=== PATIENT | female | born 1955 | race Caucasian/White ===

== ENCOUNTER 2018-05-09 09:02 | Day surgery (SDC) | payer MEDICARE, BC ==
[~2018-05-09 09:02] MED LIST: Sodium Chloride 0.9% 10 ML Syringe FLUSH PRN
[2018-05-09] MEDS ORDERED: Midazolam 1 MG/ML 2 ML SDV ONE (09:44)
[2018-05-09] MEDS ORDERED: Propofol 200 MG/20 ML SDV ONE (09:45)
[2018-05-09] MEDS ORDERED: fentaNYL 100 MCG/2 ML SDV ONE (09:45)
[2018-05-09] MEDS ORDERED: EPINEPHrine 1:10,000 1 MG/10 ML Syringe ONE (10:09)
[2018-05-09] MEDS: Sodium Chloride 0.9% 1,000 ML IV SCH (11:17)
[2018-05-09] MEDS ORDERED: fentaNYL 100 MCG/2 ML SDV IV ONE (11:25)
[2018-05-09] MEDS ORDERED: Midazolam 1 MG/ML 2 ML SDV IV ONE (11:25)
[2018-05-09] MEDS ORDERED: Propofol 200 MG/20 ML SDV IV ONE (11:25)
--- NOTE | 2018-05-09 12:20 | PCM.OPNOTE ---
- General Post-Op/Procedure Note Date of Surgery/Procedure: 05/09/18 Operative Procedure(s): Upper and lower GI endoscopy and polypectomy. Pre Op Diagnosis: Anemia and Hemoccult-positive stools. Post-Op Diagnosis: Small hiatal hernia without evidence of ulceration. Otherwise negative upper GI endoscopy. Polyp noted at the ascending colon. Polypectomy performed. Otherwise negative colonoscopy. Anesthesia Technique: Combo Spinal/Epidural, MAC Primary Surgeon: Taylor Smallwood Complications: None Condition: Good Free Text/Narrative:: INFORMED CONSENT: Patient is here today for elective upper GI endoscopy. All aspects of this procedure have been discussed with the patient. All possible complications also, including possibility of perforation, infection, pain, bleeding, numbness of the throat, swallowing difficulty and unknown complications. In the event of perforation the patient may need surgical exploration to repair the defect. The patient understands fully well. Patient did not have any further questions for me at the end of my interview. The patient wishes for me to proceed. INSTRUMENT USED: Video gastroscope ANESTHESIA: [MAC] Indication: Anemia and Hemoccult positive stools. ASA CLASSIFICATION: [2] PROCEDURE PERFORMED: [] PHARYNX: Normal. ESOPHAGUS: Normal. Proximal: Normal. Middle: Normal. Lower: Normal. GE Junction: Normal except for small hiatal hernia. STOMACH: Normal. Cardia: Normal. Fundus: Normal. Lesser Curvature: Normal. Greater Curvature: Normal. Antrum: Normal. Pylorus: Normal. DUODENUM: Normal. First Part: Normal. Second Part: Normal. Third Part: Normal. RETROFLEXION: Normal. BIOPSY: None. TOLERANCE: Excellent. COMPLICATIONS: None. Final diagnosis: Small hiatal hernia is noted without inflammation or ulceration. INFORMED CONSENT: Patient is here today for elective colonoscopy. All aspects of this procedure have been discussed with the patient. All possible complications also, including possibility of perforation, infection, pain, bleeding and unknown complications. In the event of perforation patient may need to have abdominal exploration, colon resection, colostomy and even was discussed. Anesthetic complications were handled by anesthesia department. The patient understands fully well. Patient did not have any further questions for me at the end of my interview. The patient wishes for me to proceed. PREOPERATIVE DIAGNOSIS/INDICATIONS: [Anemia and Hemoccult-positive stools negative upper GI endoscopy] POSTOPERATIVE DIAGNOSIS: [Small polyp noted at the ascending colon.] INSTRUMENT USED: [employer]il [employer] videocolonoscope. ASA CLASSIFICATION: [2] ANESTHESIA: Continuous EKG, oximetry and intermittent blood pressure and respiratory monitoring were performed throughout the procedure. IV Versed and Fentanyl were administered. PROCEDURE PERFORMED: Colonoscopy POSITIONS OF PATIENT: Left lateral. RECTUM: Normal. SIGMOID COLON: Normal. DESCENDING COLON: Normal. SPLENIC FLEXURE: Normal. TRANSVERSE COLON: Normal. HEPATIC FLEXURE: Normal. ASCENDING COLON: A small polyp was identified and removed using the snare and electrocautery. CECUM: Normal. ILEOCECAL VALVE: Normal. BIOPSY: None. TOLERANCE: Excellent. COMPLICATIONS: None. Small polyp of the ascending colon otherwise negative colonoscopy.
[2018-05-09 14:15] VITALS: BP 139/82
== END 2018-05-09 14:25 | disposition home or self-care (01) ==
LOC: KA.SDS 09:02
PROVIDERS: ATTEND Family Medicine
DX: D12.2 Benign neoplasm of ascending colon (principal); D50.0 Iron deficiency anemia secondary to blood loss (chronic); K44.9 Diaphragmatic hernia without obstruction or gangrene; K59.00 Constipation, unspecified; I12.9 Hypertensive chronic kidney disease with stage 1 through stage 4 chronic kidney disease, or unspecified chronic kidney disease; E11.22 Type 2 diabetes mellitus with diabetic chronic kidney disease; N18.3 Chronic kidney disease, stage 3 (moderate); E78.2 Mixed hyperlipidemia; F32.9 Major depressive disorder, single episode, unspecified; Q90.9 Down syndrome, unspecified; Z79.4 Long term (current) use of insulin; Z79.899 Other long term (current) drug therapy
CPT/HCPCS: 00813; 82962; J2250; J2704; J3010; J7030

== ENCOUNTER 2020-01-01 09:51 | Emergency (ER) | payer MEDICARE, BC, MEDICAID ==
--- NOTE | 2020-01-01 09:58 | EDM.PDOC ---
ED HPI GENERAL MEDICAL PROBLEM - General Chief Complaint: Respiratory Problem Stated Complaint: DIABETIC Time Seen by Provider: 01/01/20 09:58 Source of Information: Reports: EMS, EMS Notes Reviewed, [facility] Records History Limitations: Reports: Altered Mental Status - History of Present Illness INITIAL COMMENTS - FREE TEXT/NARRATIVE: Aggie, 64-year-old female, transferred by ambulance today from the [facility] in [place] after they had noted more difficulty in her overall status. They sent a fax to the [facility] provider Carmen Sandoval for discussion on libia tment modalities and her current status. Known Covid positive now requiring oxygen. For the past 2 days she has had poor oral intake of both fluids and food, re fusing to eat. Insulin and diabetic treatments have been held. Blood sugars have been good. She is a full code with family requesting transfer to the facility for further evaluation and treatment. Onset: Today Duration: Hour(s): Location: Reports: Chest, Generalized Severity: Moderate Improves with: Reports: Other (Oxygen) Worsens with: Reports: Movement Context: Reports: Sick Contact - Related Data Allergies Allergy/AdvReac Type Severity Reaction Status Date / Time No Known Drug Allergies Allergy Cannot Verified 01/01/20 10:12 Remember Home Meds: Home Meds Rosuvastatin [Crestor] 40 mg PO BEDTIME 03/17/14 [History] Aspirin [Halfprin] 81 mg PO DAILY 07/07/14 [History] Insulin Aspart Prot/Insuln Asp [Novolog Mix 70-30 Flexpen Syrn] 14 unit SQ ACDINNER 07/07/14 [History] Insulin Aspart Prot/Insuln Asp [Novolog Mix 70-30 Flexpen Syrn] 14 units SQ ACBREAKFAST 07/07/14 [History] Ferrous Sulfate [Iron] 325 mg PO Q48H 02/14/18 [History] Acetaminophen [Tylenol Extra Strength] 500 mg PO TID 05/06/18 [History] Docusate Sodium [Colace] 100 mg PO BID PRN 05/06/18 [History] polyethylene glycoL 3350 [MiraLAX] 17 gm PO DAILY 05/06/18 [History] Ascorbic Acid [Vitamin C] 500 mg PO Q48H 01/01/20 [History] Citalopram [Citalopram HBr] 10 mg PO DAILY 01/01/20 [History] Insulin Aspart [NovoLOG] 14 units SUBCUT ACLUNCH 01/01/20 [History] Insulin Degludec [Tresiba] 64 unit SQ DAILY 01/01/20 [History] Losartan Potassium 25 mg PO DAILY 01/01/20 [History] Omeprazole 20 mg PO QAM 01/01/20 [History] diphenhydrAMINE [Benadryl] 25 mg PO Q8H PRN 01/01/20 [History] sitaGLIPtin Phosphate [Januvia] 50 mg PO DAILY 01/01/20 [History] Past Medical History HEENT History: Reports: Impaired Vision Cardiovascular History: Reports: High Cholesterol, Hypertension Respiratory History: Reports: Other (See Below) (COVID-19 positive) Genitourinary History: Reports: Urinary Incontinence, Other (See Below) Other Genitourinary History: dribbling Musculoskeletal History: Reports: Fracture Other Musculoskeletal History: current lumbar fx (2 weeks ago) with c-colar in place for same. tinight proximal humerus fx - displaced after fall Psychiatric History: Reports: Developmental Delay, Other (See Below) Other Psychiatric History: down syndrome, learning disability Endocrine/Metabolic History: Reports: Diabetes, Type II Hematologic History: Reports: Anemia - Infectious Disease History Infectious Disease History: Reports: Other (See Below) (COVID-19 positive) - Past Surgical History HEENT Surgical History: Reports: Cataract Surgery Neurological Surgical History: Reports: None Musculoskeletal Surgical History: Reports: Arthroscopic Knee Dermatological Surgical History: Reports: None - Past Imaging History Past Imaging History: Reports: Xray Social & Family History - Family History Family Medical History: Noncontributory - Caffeine Use Caffeine Use: Reports: None ED ROS GENERAL - Review of Systems Review Of Systems: Comprehensive ROS is negative, except as noted in HPI. Reason Not Obtained: Is not fully compliant in questioning and examination. ED EXAM, GENERAL - Physical Exam Exam: See Below Free Text/Narrative:: Alert, hesitant in cooperation, not speaking to us during examination. Her facial features seem slightly edematous with no involvement of the auditory canals nor tympanic membranes. Nursing staff is required to force her eyelids open to allow visualization with pupils reactive and no icterus nor injection appreciated. Nasal and oral passages are patent. Neck is short poole with a fullness feature to the neck and chest. Chest has scattered rhonchi throughout and some crackles. Cardiac is in the 90s with no appreciated murmur somewhat distant to auscultate. Abdomen is soft bowel sounds are present no tenderness is elicited to the a bdomen. Tenderness to the extremities to motion and generalized pain elicited to motion and palpation. rectal and breast is deferred. There is edema +2 to the lower extremities with skin warm and dry. #1 Interpretation EKG Date: 01/01/20 Time: 11:00 Rhythm: NSR Jeffrey: Normal P-Wave: Present QRS: Normal ST-T: Normal QT: Normal Comparison: NA - No Prior EKG Course - Vital Signs Last Recorded V/S: Last Vital Signs Temp 36.5 C 01/01/20 11:39 Pulse 93 01/01/20 11:30 Resp 18 01/01/20 11:30 BP 147/80 H 01/01/20 11:30 Pulse Ox 95 01/01/20 11:30 - Orders/Labs/Meds Orders: Active Orders 24 hr Category Date Time Status EKG Documentation Completion [RC] ASDIRECTED Care 01/01/20 10:07 Active CULTURE BLOOD [BC] Stat Lab 01/01/20 10:06 Ordered CULTURE BLOOD [BC] Stat Lab 01/01/20 10:50 Received Blood Culture x2 Reflex Set [OM.PC] Stat Oth 01/01/20 10:06 Ordered EKG 12 Lead [EK] Urgent Ther 01/01/20 10:06 Ordered Labs: Laboratory Tests 01/01/20 01/01/20 01/01/20 Range/Units 09:50 09:50 09:50 WBC 6.05 (5.00-10.00) 10^3/uL RBC 3.19 L (3.80-5.50) 10^6/uL Hgb 10.4 L (12.0-16.0) g/dL Hct 33.4 L (37.0-47.0) % MCV 104.7 H (82.0-92.0) fL MCH 32.6 H (27.0-31.0) pg MCHC 31.1 L (32.0-36.0) g/dL RDW 15.7 H (11.5-14.5) % Plt Count 172 D (150-400) 10^3/uL MPV 10.3 (7.4-10.4) fL Immature Gran % (Auto) 1.0 (0.0-5.0) % Neut % (Auto) 76.0 H (50.0-70.0) % Lymph % (Auto) 11.4 L (20.0-40.0) % [place]orry % (Auto) 10.6 H (2.0-8.0) % Eos % (Auto) 0.7 L (1.0-3.0) % Baso % (Auto) 0.3 (0.0-1.0) % Neut # (Auto) 4.60 (2.50-7.00) 10^3/uL Lymph # (Auto) 0.69 L (1.00-4.00) 10^3/uL Horry # (Auto) 0.64 (0.10-0.80) 10^3/uL Eos # (Auto) 0.04 L (0.10-0.30) 10^3/uL Baso # (Auto) 0.02 (0.00-0.10) 10^3/uL Immature Gran # (Auto) 0.06 (0.00-0.50) 10^3/uL Sodium 140 (136-145) mmol/L Potassium 4.5 (3.3-5.3) mmol/L Chloride 100 (98-115) mmol/L Carbon Dioxide 27.7 (21.0-32.0) mmol/L Anion Gap 16.8 H (5-15) mmol/L BUN 36 H (6-25) mg/dL Creatinine 1.96 H (0.51-1.17) mg/dL Est Cr Clr Drug Dosing TNP Estimated GFR (MDRD) 26 mL/min Glucose 112 H (75 - 99) mg/dL Lactic Acid (0.4-2.0) mmol/L Calcium 8.2 L (8.7-10.3) mg/dL Total Bilirubin 0.2 (0.2-1.0) mg/dL AST 68 H (15-37) U/L ALT 31 (12-78) U/L Alkaline Phosphatase 97 (46-116) IU/L Troponin I 0.04 (0.00-0.070) ng/mL B-Natriuretic Peptide 8 (0-100) pg/mL Total Protein 7.5 (6.4-8.2) g/dL Albumin 3.04 (3.00-4.80) g/dL 01/01/20 Range/Units 10:00 WBC (5.00-10.00) 10^3/uL RBC (3.80-5.50) 10^6/uL Hgb (12.0-16.0) g/dL Hct (37.0-47.0) % MCV (82.0-92.0) fL MCH (27.0-31.0) pg MCHC (32.0-36.0) g/dL RDW (11.5-14.5) % Plt Count (150-400) 10^3/uL MPV (7.4-10.4) fL Immature Gran % (Auto) (0.0-5.0) % Neut % (Auto) (50.0-70.0) % Lymph % (Auto) (20.0-40.0) % [place] % (Auto) (2.0-8.0) % Eos % (Auto) (1.0-3.0) % Baso % (Auto) (0.0-1.0) % Neut # (Auto) (2.50-7.00) 10^3/uL Lymph # (Auto) (1.00-4.00) 10^3/uL Horry # (Auto) (0.10-0.80) 10^3/uL Eos # (Auto) (0.10-0.30) 10^3/uL Baso # (Auto) (0.00-0.10) 10^3/uL Immature Gran # (Auto) (0.00-0.50) 10^3/uL Sodium (136-145) mmol/L Potassium (3.3-5.3) mmol/L Chloride (98-115) mmol/L Carbon Dioxide (21.0-32.0) mmol/L Anion Gap (5-15) mmol/L BUN (6-25) mg/dL Creatinine (0.51-1.17) mg/dL Est Cr Clr Drug Dosing Estimated GFR (MDRD) mL/min Glucose (75 - 99) mg/dL Lactic Acid 0.6 (0.4-2.0) mmol/L Calcium (8.7-10.3) mg/dL Total Bilirubin (0.2-1.0) mg/dL AST (15-37) U/L ALT (12-78) U/L Alkaline Phosphatase (46-116) IU/L Troponin I (0.00-0.070) ng/mL B-Natriuretic Peptide (0-100) pg/mL Total Protein (6.4-8.2) g/dL Albumin (3.00-4.80) g/dL Meds: Medications Discontinued Medications Generic Name Dose Route Start Last Admin Trade Name Krissy PRN Reason Stop Dose Admin Sodium Chloride Confirm 01/01/20 12:29 01/01/20 13:10 Normal Saline Administered 01/01/20 12:30 Not Given Dose 1,000 mls @ as directed .ROUTE .STK-MED ONE Sodium Chloride 1,000 mls @ 999 mls/hr 01/01/20 12:29 01/01/20 12:55 Normal Saline IV 01/01/20 13:29 999 mls/hr .BOLUS ONE Administration - Re-Assessments/Exams Free Text/Narrative Re-Assessment/Exam: 01/01/20 13:06 Phone call need Rusty Lobato to discuss findings. [place] agreement that we would speak with the power of workers compensation attorney answers no definitive acute findings for hospitalization. I spoke with power of workers compensation attorney, brother Johny, over the status of his Sister Aggie. I described the details of our findings with significant viral pneumonia, Covid findings, and the serious nature of this. At that time he stated he did not wish for resuscitation status/intubation to be continued, but states he was seeking legal for change in CODE STATUS paperwork. advised him that that could be handled either in person, or over the phone with a witness in with a POLST agreement form completed her stroke CODE STATUS could be changed. We discussed in detail the options reading from the POLST form he agreeing to comfort only with no aggressive interventions focusing on Aggie's comfort. Form was completed and he was advised that she would get a slight fluid bolus prior to returning to the half-way for continuum of care. He returned phone call to us at 1235 stating that he wished at this time that we should contact [facility] in [place] to see if they would accept her to the Covid unit. [phone] initial phone call made with return from Dr. Ruffin medical claims analyst at [facility] doing the screening aspect for admissions. Denies the admission ba sed on bed space and criteria of our laboratory findings and oxygen saturation. Departure - Departure Time of Disposition: 13:18 Disposition: DC/Tfer to SNF 03 Condition: Serious Clinical Impression: Pneumonia due to 2019 novel coronavirus - Discharge Information *PRESCRIPTION DRUG MONITORING PROGRAM REVIEWED*: Not Applicable *COPY OF PRESCRIPTION DRUG MONITORING REPORT IN PATIENT FARHAD: Not Applicable Referrals: Kiera Lerner PA-C [Primary Care Provider] - Forms: ED Department Discharge Additional Instructions: Received fluid bolus here to try offset the lack of intake. Will be returned to the [facility] with the noted change in CODE STATUS per POLST form. We will continue medications and treatments as previous with contact with primary provider for adjustment in cares. Dr. Sayra Camilo was informed of the return and CODE STATUS changed verbally in the emergency department. Sepsis Event Note (ED) - Focused Exam Vital Signs: Vital Signs Temp Pulse Resp BP Pulse Ox 01/01/20 11:39 36.5 C 01/01/20 11:30 93 18 147/80 H 95 01/01/20 11:15 93 18 140/75 95 01/01/20 10:56 94 20 129/109 H 96 01/01/20 10:30 93 21 H 137/77 01/01/20 10:15 94 16 127/73 98 01/01/20 10:00 36.3 C 92 20 127/59 L 99 - Problem List & Annotations (1) COVID-19 virus detected SNOMED Code(s): 3358908225178516 Code(s): U07.1 - COVID-19 Status: Chronic Priority: High Current Visit: Yes (2) Weakness SNOMED Code(s): 18810638 Code(s): R53.1 - WEAKNESS Status: Acute Priority: High Current Visit: Yes (3) Pneumonia due to 2019 novel coronavirus SNOMED Code(s): 767435918440024928 Code(s): U07.1 - COVID-19; J12.89 - OTHER VIRAL PNEUMONIA Status: Acute Priority: High Current Visit: Yes (4) Uncontrolled insulin dependent type 1 diabetes mellitus SNOMED Code(s): 488203794, 647020409 Code(s): E10.65 - TYPE 1 DIABETES MELLITUS WITH HYPERGLYCEMIA Status: Chronic Priority: High Current Visit: No Annotation/Comment:: Discussed with clinical provider (5) Anemia SNOMED Code(s): 654709020 Code(s): D64.9 - ANEMIA, UNSPECIFIED Status: Acute Current Visit: Yes Qualifiers: Anemia type: due to chronic kidney disease Chronic kidney disease stage: stage 4 (severe) Qualified Code(s): N18.4 - Chronic kidney disease, stage 4 (severe); D63.1 - Anemia in chronic kidney disease - Problem List Review Problem List Initiated/Reviewed/Updated: Yes - My Orders Last 24 Hours: My Active Orders 01/01/20 10:06 CULTURE BLOOD [BC] Stat Blood Culture x2 Reflex Set [OM.PC] Stat EKG 12 Lead [EK] Urgent 01/01/20 10:07 EKG Documentation Completion [RC] ASDIRECTED 01/01/20 10:50 CULTURE BLOOD [BC] Stat - Assessment/Plan Last 24 Hours: My Active Orders 01/01/20 10:06 CULTURE BLOOD [BC] Stat Blood Culture x2 Reflex Set [OM.PC] Stat EKG 12 Lead [EK] Urgent 01/01/20 10:07 EKG Documentation Completion [RC] ASDIRECTED 01/01/20 10:50 CULTURE BLOOD [BC] Stat Plan: Received fluid bolus here to try offset the lack of intake. Will be returned to the [facility] with the noted change in CODE STATUS per POLST form. We will continue medications and treatments as previous with contact with primary provider for adjustment in cares. Dr. Sayra Camilo was informed of the return and CODE STATUS changed verbally in the emergency department.
[2020-01-01 11:06] LABS: ANION GAP 16.8 mmol/L (5-15); CHLORIDE,CL 100 mmol/L (98-115); SODIUM,NA 140 mmol/L (136-145)
--- NOTE | 2020-01-01 11:11 | CR ---
[id number] RAD/RAD Chest PA or AP 1V EXAM: RAD Chest PA or AP 1V INDICATION: PAIN. COMPARISON: May 28, 2014. DISCUSSION: Cardiomediastinal silhouette is stable in size and contour. Elevation the right hemidiaphragm. Extensive bilateral infiltrates, left greater than right. No pneumothorax or pleural effusion. 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 IMPRESSION: Extensive bilateral pulmonary infiltrates, left greater than right. Findings are likely infectious/inflammatory in nature as can be seen with atypical/viral pneumonia. Jason Hull DO 01/01/20 1108 Thank you for allowing us to participate in the care of your patient.
[2020-01-01] MEDS ORDERED: Sodium Chloride 0.9% 1,000 ML IV ONE (12:29)
[2020-01-01] MEDS ORDERED: Sodium Chloride 0.9% 1,000 ML ONE (12:29)
[2020-01-01 13:53] VITALS: BP 114/88; PULSE 91
== END 2020-01-01 13:40 ==
LOC: KA.ED 09:51
DX: U07.1 COVID-19 (principal); J12.89 Other viral pneumonia; I10 Essential (primary) hypertension; E11.9 Type 2 diabetes mellitus without complications; E78.00 Pure hypercholesterolemia, unspecified; Z79.4 Long term (current) use of insulin; Z79.82 Long term (current) use of aspirin; Z79.899 Other long term (current) drug therapy
CPT/HCPCS: 36415; 71045; 80053; 83605; 83880; 84484; 85025; 87040 ×2; 99285; J7030; 93005; 99284